=== PATIENT | male | born 1960 | race Caucasian/White ===

== ENCOUNTER → 2020-06-11 02:01 | Outpatient (CLI) | payer BC, SELFPAY ==
[2020-06-11 19:24] LABS: SARS-CoV-2 RNA PCR Negative
== END ==
PROVIDERS: PCP Internal Medicine; Visit Provider Internal Medicine Gastroenterology
DX: Z01.812 Encounter for preprocedural laboratory examination (principal); Z20.822 Contact with and (suspected) exposure to COVID-19
CPT/HCPCS: C9803; U0003; U0005

== ENCOUNTER 2020-06-14 01:53 | Day surgery (SDC) | payer BC, SELFPAY ==
[2020-06-06 15:44] VITALS: BMI 28.5
[2020-06-14 07:51] VITALS: BP 115/70; PULSE 71; RESP 16; TEMP 36.5; O2SAT 98; BMI 29.5
[2020-06-14] MEDS: LACTATED RINGERS 1,000 ML 150 ML IV CONT (08:05)
--- NOTE | 2020-06-14 08:13 | PM.HPGS ---
History of Present Illness History of Present Illness Consent: Risks, benefits, and alternatives have been discussed and questions answered. Patient agrees to proceed with procedure. Chief complaint: neoplasm screening Narrative: Renard Ochoa is a 59 year old male referred for colon cancer screening Review of Systems Review of Systems: All systems reviewed & are unremarkable except as noted in HPI and below PMFSH Past Medical History Medical History BMI 30.0-30.9,adult Borderline abnormal TFTs Changing skin lesion Colon cancer screening Encounter for preventive health examination Encounter for routine adult health examination without abnormal findings Encounter for special screening examination for neoplasm of prostate GERD (gastroesophageal reflux disease) Hyperlipidemia Laceration of finger of left hand Obstructive sleep apnea On terminal block assembler drug therapy Pre-diabetes Family History Family History Grandparent Carcinoma of colon Other Family history of malignant neoplasm Social History Social History Smoking status: Never smoker Second hand tobacco smoke exposure: No Alcohol intake: never Substance use: never Substance use type: does not use Living arrangements: with family Spiritual care concerns: No Meds Home Medications and Allergies Home Medications Medication Instructions Recorded Confirmed Type sod picosulf 10 mg-magnes 3.5 160 ml PO BID #160 ml 04/24/20 Rx gram-citric 12 gram/160 mL oral solution icosapent ethyl [Vascepa] 2 g PO BID 06/06/20 06/14/20 History rosuvastatin 40 mg PO DAILY 06/06/20 06/14/20 History Allergies Allergy/AdvReac Type Severity Reaction Status Date / Time No Known Allergies Allergy Unknown Verified 06/06/20 15:45 Vital Signs Vital Signs - 24 hr 06/14/20 07:51 Temperature 36.5 C Pulse Rate 71 Respiratory Rate 16 Blood Pressure 115/70 Pulse Oximetry 98 Exam Resp: Auscultation: clear to auscultation bilaterally Cardio: Rate: regular rate Rhythm: regular rhythm GI: GI Palp: Yes Soft to palpation and No Tenderness to palpation present (GI) Assessment and Plan Assessment and plan (1) Colon cancer screening: Code(s): Z12.11 - Encounter for screening for malignant neoplasm of colon Status: Acute Assessment and Plan: Colonoscopy with possible biopsy or polypectomy or cautery or injection of substances.
--- NOTE | 2020-06-14 08:21 | WPDANESEPPF ---
Anes - Initial Pre Proc Eval Procedure: Operation Date: 06/14/20 09:00 Proposed Procedures p Screening Colonoscopy - Barry Broussard MD Date/Time: 06/14/20 08:21 Surgeon: Barry Broussard MD Pre Op Diagnosis: neoplasm screening Patient Data Age: 59 Gender: M Height: 5 ft 11 in Weight: 96.2 kg Last Vital Signs Temp 36.5 C 06/14/20 07:51 Pulse 71 06/14/20 07:51 Resp 16 06/14/20 07:51 BP 115/70 06/14/20 07:51 Pulse Ox 98 06/14/20 07:51 Allergies Allergy/AdvReac Type Severity Reaction Status Date / Time No Known Allergies Allergy Unknown Verified 06/06/20 15:45 Home Medications Medication Instructions Recorded Confirmed Type sod picosulf 10 mg-magnes 3.5 160 ml PO BID #160 ml 04/24/20 Rx gram-citric 12 gram/160 mL oral solution icosapent ethyl [Vascepa] 2 g PO BID 06/06/20 06/14/20 History rosuvastatin 40 mg PO DAILY 06/06/20 06/14/20 History Patient hx anesthesia problems: none Family hx anesthesia problems: none PMFSH Past Medical History Medical History BMI 30.0-30.9,adult Borderline abnormal TFTs Changing skin lesion Colon cancer screening Encounter for preventive health examination Encounter for routine adult health examination without abnormal findings Encounter for special screening examination for neoplasm of prostate GERD (gastroesophageal reflux disease) Hyperlipidemia Laceration of finger of left hand 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 Pre-diabetes Family History Family History Grandparent Carcinoma of colon Other Family history of malignant neoplasm Social History Social History Smoking status: Never smoker Second hand tobacco smoke exposure: No Alcohol intake: never Substance use: never Substance use type: does not use Living arrangements: with family Spiritual care concerns: No Anes - Eval Final PreProcedure Day of Procedure 06/14/20 08:21 Patient weight: overweight Heart: regular rate and rhythm Lungs: clear to auscultation Airway: Mallampati scale class II Neurological: alert and oriented Last oral intake: >/= 8 hours ASA classification: II Emergent: no Anesthetic plan: proceed Anesthesia type and monitoring: general GIVS and standard monitoring Informed Consent: The patient's anesthetic plan and its attendant risks and benefits were discussed with the patient/family/POA. Questions were solicited and answers provided to the satisfaction of the patient/family/POA.
[2020-06-14 09:11] VITALS: BP 107/59; PULSE 64; RESP 20; O2SAT 98
[2020-06-14 09:21] VITALS: BP 112/63; PULSE 65; RESP 22; O2SAT 98
[2020-06-14 09:31] VITALS: BP 112/63; PULSE 65; RESP 22; O2SAT 98
== END 2020-06-14 09:45 | disposition home or self-care (01) ==
PROVIDERS: PCP Internal Medicine; Visit Provider Internal Medicine Gastroenterology
PROC: 0DJD8ZZ Inspection of Lower Intestinal Tract, Via Natural or Artificial Opening Endoscopic (ICD-10-PCS; CPT 45378; principal; 2020-06-14 09:00)
DX: Z12.11 Encounter for screening for malignant neoplasm of colon (principal); D12.5 Benign neoplasm of sigmoid colon; E78.5 Hyperlipidemia, unspecified; K21.9 Gastro-esophageal reflux disease without esophagitis; G47.33 Obstructive sleep apnea (adult) (pediatric); R73.03 Prediabetes
CPT/HCPCS: 45385; 88305; C9803; J2704; J7120; U0003; U0005